=== PATIENT | female | born 1995 | race Caucasian/White ===

== ENCOUNTER 2022-07-25 08:15 | Outpatient (RCR) | payer OTHER, SELFPAY ==
[2022-07-13 13:05] VITALS: BP 102/60; PULSE 80; TEMP 36.6
[2022-07-13 15:17] LABS: Amphetamine Screen Urine Not Detected (Not Detect); Barbiturates, Urine Not Detected (Not Detect); Benzodiazepines Screen Urine Not Detected (Not Detect); Cannabinoid Screen Urine Not Detected (Not Detect); Cocaine Screen Urine Not Detected (Not Detect); Fentanyl, urine Not Detected (Not Detect); Opiate Screen Urine Not Detected (Not Detect); Phencyclidine Screen Urine Not Detected (Not Detect)
[2022-07-13 15:31] VITALS: BMI 21.2
--- NOTE | 2022-07-13 15:47 | PC.NURSE ---
Case opened in treatment team.
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
--- NOTE | 2022-07-14 14:05 | PC.NURSE ---
I met with pt and reviewed treatment plan, schedule, and aftercare plans.
--- NOTE | 2022-07-17 09:48 | PC.NURSE ---
Patient did not show up to community meeting this morning. I called patient and she stated she overslept. I asked her if she was ok or was having any safety issues and she stated she was ok. Denied SI. She plans on coming to the program tomorrow.
--- NOTE | 2022-07-19 10:46 | P.PNPSP_ITS ---
Subjective Subjective Date of Service: 07/19/22 Reason For Visit: LYSSA,MDD Medical Problems Affecting Mental Status: No Interim History: Reports feeling increased anxiety since lowering Effexor several weeks ago to 100 mg. No SI. Continues to remain abstinent from alcohol. Requesting increase in Effexor back to previous dose. Outpatient provider increased Lamictal to 75 mg daily on Sunday this week. Planning to start school in 2 weeks, has 18 credits scheduled. Medication Compliance: Yes Side effects from medications: Yes (Feels more anxious with decrease of Effexor.) Attending Groups: Yes Review of Systems Acute medical concerns: No Medical Review of Systems: unchanged Review of Systems Review of Systems Yes all other systems are reviewed and are negative Constitutional: Reports no additional constitutional complaints Mental Status Exam Mental Status Exam Narrative: NAD. No SI/HI, no safety concerns. Patient Appearance: Well Grooomed and Appropriate Patient Orientation: Person, Place, Time and Situation Level of Consciousness: Appropriate and Alert Patient Behavior: Appropriate, Cooperative and Good Eye Contact Mood Description: Depressed and Anxious Affect Description: Depressed and Anxious Patient Cognition Impaired: No Ability to Follow Directions: Excellent Speech Pattern: Clear, Appropriate and Coherent Memory Description: Intact Hallucinations: None Delusions: Not Present Perceptual Disturbances: Depersonalization (Describes episodes of disassociation frequently.) Thought Process: Intact Thought Content: positive for Intact Depressive Symptoms: Difficulty Sleeping, Changes in Appetite (reduced), Loss of Int. in Activity, Feelings of Guilt and Increased Fatigue Judgement: Fair Diagnostics Vital Signs (24Hr): BMI result Body Mass Index 21.2 Assessment & Plan Assessment & Plan (1) Major depressive disorder, recurrent severe without psychotic features: Status: Acute Code(s): F33.2 - Major depressive disorder, recurrent severe without psychotic features Assessment and Plan: Reports feeling increased anxiety since lowering Effexor several weeks ago to 100 mg. No SI, no safety concerns. Continues to remain abstinent from alcohol. Actively engaging in 12 step recovery program. Plans to go to home group tonight for AA. Requesting increase in Effexor back to previous dose. States that she feels this would be more helpful. Outpatient provider increased Lamictal to 75 mg daily on Sunday this week. No side effects. Discussed titration schedule of Lamictal, in order to reach therapeutic level with positive effect. Planning to start school in 2 weeks, has 18 credits scheduled. Discussed need to focus on early sobriety and psychiatric care. Reviewed stress level of taking multiple credits at once, discussed having a plan to reduce load if becomes overwhelmed. (2) Post-traumatic stress disorder, chronic: Status: Acute Code(s): F43.12 - Post-traumatic stress disorder, chronic Assessment and Plan: Finding it difficult at times to be staying with family, as reports that is bringing up past trauma. (3) Alcohol dependence, uncomplicated: Status: Acute Code(s): F10.20 - Alcohol dependence, uncomplicated (4) LYSSA (generalized anxiety disorder): Status: Acute Code(s): F41.1 - Generalized anxiety disorder Plan 1. Continue with current [facility] plan of care. 2. Increase Effexor to ER, 150 mg daily. (her previous dose) 3. Follow-up as per protocol. Reason for contiued partial hosp. stay Substantial Risk for: inability to function, rapid decompensation and med/psych decompensation Certification I certify that partial hospital treatment is medically necessary due to the symptoms and problems resulting from the patient's mental illness and the failure to treat the patient at the partial hospital level of care would likely result in the patient requiring inpatient psychiatric care which could not be prevented at a less intensive level of care. I spent minutes with the patient and/or on the patient floor today, greater than?50% of which was spent counseling/coordinating care. Discharge Plan Discharge Attending provider: Eddie Duncan Medications: New venlafaxine 150 mg tablet extended release 24hr 150 mg PO DAILY Qty: 30 0RF Discontinued venlafaxine [Effexor] 100 mg Tablet 100 mg PO DAILY No Action naltrexone 50 mg Tablet 50 mg PO BEDTIME Label Comments: Patient takes at HS. lamotrigine [Lamictal] 25 mg Tablet 50 mg PO DAILY Label Comments: Patient stated this was recently increased from 25 mg to 50 mg daily. mirtazapine [Remeron] 15 mg Tablet 15 mg PO BEDTIME gabapentin 100 mg Tablet 100 mg PO TID Label Comments: Patient reports this is a new medication and she has not started. Plans on seeing how the increase in Lamictal works before starting.
--- NOTE | 2022-07-25 13:18 | PC.NURSE ---
Patient scheduled for routine discharge from [facility] today. Met with patient who stated she felt, fine regarding discharge and feels ready. Denied SI, no thoughts to harm or kill herself. Denied any safety issues. Reviewed patient medications with patient. Patient appears to know what her medications are, what they are for, and when to take them. Patient has a prescriber and stated no medication changes made while in the program.
--- NOTE | 2022-07-25 15:10 | PC.NURSE ---
I called and left a message for pt's therapist, Josey Gagnon [facility], informing her of pt's discharge from [facility] today, and of pt's clinical presentation at discharge.
== END 2022-07-25 23:59 | disposition home or self-care (01) ==
LOC: HO.PHPA 08:15
PROVIDERS: Nurse Practitioner Psychiatric/Mental Health; Visit Provider Psychiatry & Neurology Psychiatry
DX: F33.2 Major depressive disorder, recurrent severe without psychotic features (principal); F43.12 Post-traumatic stress disorder, chronic; F41.1 Generalized anxiety disorder; F10.20 Alcohol dependence, uncomplicated; Z79.899 Other long term (current) drug therapy
CPT/HCPCS: 80307; 90791; 90853